=== PATIENT | female | born 1945 | race Caucasian/White ===

== ENCOUNTER 2016-10-30 06:07 | Inpatient (IN) | payer OTHER, BC ==
[~2016-10-30] VITALS: Ht 157.5 cm; Wt 121.9 kg
[~2016-10-30 06:07] MED LIST: ADULT LOW DOSE81 M1 PO; ASPIR 8181 M1 PO; BYSTOLIC5 MG PO; CARDURA2 M1 PO; CARDURA4 MG PO; CHOLESTYRAMINE P4 GM PO; CYANOCOBALAM1000 MCG PO; DILAUDID2 MG PO; ENBREL50 MG/1 ML SC; FAMOTIDINE20 MG PO; FENOFIBRATE160 M1 NG; FENOFIBRATE160 M1 PO; FLORASTOR250 MG PO; FOLIC ACID1 MG PO; FOLVITE1 MG PO; GABAPENTIN100 MG PO; GABAPENTIN300 MG PO; GLIPIZIDE10 MG PO; GLUCOPHAGE XR1000 MG PO; GLUCOTROL10 MG PO; HYDROMORPHONE HC4 MG PO; LANTUS 10100 UNITS/ SC; LANTUS 3 M100 UNITS1 SC; LASIX20 MG PO; LASIX40 MG PO; LEVEMIR100 UNIT/2 SC; LEXAPRO10 MG PO; LIDOCAINE700 MG TD; LO-DOSE ASPIRIN81 M1 PO; LOFIBRA,TRIGLI160 MG PO; LOPID600 MG PO; LOSARTAN POTASS50 MG PO; LOW DOSE ASPIRI81 M1 PO; MEDROL DOSEPAK4 MG PO; METHOTREXATE2.5 MG PO; METRONIDAZOLE500 MG PO; NEURONTIN300 MG PO; NIFEDIAC CC60 MG PO; NIFEDICAL XL30 MG PO; NITROFURANTOIN100 MG PO; NOVOLOG PE100 UNITS/ SC; OMEPRAZOLE40 M1 PO; ONDANSETRON HCL4 MG PO; PHENERGAN25 MG PR; PROAIR HFA8.5 GM IH; PROCRIT2000 UNIT/ IV; RANITIDINE HCL300 MG PO; REVATIO20 MG PO; SILDENAFIL20 MG PO; SYNTHROID75 MCG PO; TOUJEO SOL300 UNIT/1 SC; TREXALL5 MG PO; TRIGLIDE160 MG PO; TYLENOL EXTRA500 MG PO; ULORIC40 MG PO; VALIUM5 MG PO; VANCOCIN 250 M250 MG PO; VANCOMYCIN HCL250 MG PO; VIAGRA100 MG PO; VICTOZA 2-0.6 MG/0.1 SC; VICTOZA0.6 MG/0.1 SC; VITAMIN D35000 UNIT PO; VITAMIN D5000 INTUN PO; VITAMIN D5000 UNIT PO; VITAMIN E400 UNIT PO; ZOFRAN ODT4 MG PO; ZYRTEC10 M3 PO; [UNRECOGNIZED DRUG - OTHER]; [UNRECOGNIZED DRUG - OTHER] PO; [UNRECOGNIZED DRUG - REMARK] PO
[2016-10-30 06:46] LABS: HEMATOCRIT 34.5 % (36.0-46.0); MCH 30.4 PG (29.0-34.0); MCHC 31.9 G/DL (30.0-36.0); MCV 95.3 FL (83-99); PLATELET COUNT 244 K/uL (156-360); RBC DIS.WIDTH-CV 13.3 % (11.8-14.6); RBC DIS.WIDTH-SD 46.4 % (39-53); RED BLOOD COUNT 3.62 M/uL (3.80-5.20); WHITE BLOOD COUNT 8.7 K/uL (4.1-10.2)
[2016-10-30 06:54] LABS: CHLORIDE 103 mEq/L (99-109); POTASSIUM 4.4 mEq/L (3.7-5.4); SODIUM 141 mEq/L (136-147)
[2016-10-30 06:55] LABS: GLUCOSE 240 mg/dL (70-99)
[2016-10-30 06:57] LABS: ANION GAP 13 MEQ/L (2-14)
[2016-10-30 06:59] LABS: GFR ESTIMATE (CALCULATED) 32 mL/min/
[2016-10-30 07:00] LABS: UREA NITROGEN (BUN) 57 mg/dL (9-23)
[2016-10-30 09:25] LABS: POINT-OF-CARE METER ID UU14100415
[2016-10-30] MEDS ORDERED: CYANOCOBALAM1000 MCG PO (11:00)
[2016-10-30] MEDS ORDERED: LIDODERM 5% P1 PATCH TD (11:02)
[2016-10-30] MEDS ORDERED: GLIPIZIDE10 MG PO (11:05)
[2016-10-30] MEDS ORDERED: TOUJEO SOL300 UNIT/1 SC (11:06)
[2016-10-30] MEDS ORDERED: TYLENOL EXTRA500 MG PO (11:06)
[2016-10-30] MEDS ORDERED: REFRESH TEARS15 ML BOTH EYES (11:06)
[2016-10-30 16:19] LABS: POINT-OF-CARE METER ID UU14100415
[2016-10-30 16:52] VITALS: BP 142/42
[2016-10-30 17:01] VITALS: BP 142/42
[2016-10-30 23:48] VITALS: BP 155/65
[2016-10-31 05:58] LABS: HEMATOCRIT 32.3 % (36.0-46.0); MCH 30.4 PG (29.0-34.0); MCHC 31.6 G/DL (30.0-36.0); MCV 96.1 FL (83-99); MEAN PLAT.VOLUME 11.9 uM^3 (9.5-12.4); PLATELET COUNT 237 K/uL (156-360); RBC DIS.WIDTH-CV 13.3 % (11.8-14.6); RBC DIS.WIDTH-SD 46.5 % (39-53); RED BLOOD COUNT 3.36 M/uL (3.80-5.20); WHITE BLOOD COUNT 10.3 K/uL (4.1-10.2)
[2016-10-31 06:35] LABS: ANION GAP 9 MEQ/L (2-14); CHLORIDE 102 MEQ/L (99-109); GFR ESTIMATE (CALCULATED) 28 mL/min/; GLUCOSE 196 mg/dL (70-99); POTASSIUM 4.3 MEQ/L (3.7-5.4); SAMPLE HEMOLYSIS CHECK 0; SAMPLE ICTERIC CHECK 0; SAMPLE LIPEMIA CHECK 0; SODIUM 140 MEQ/L (136-147); UREA NITROGEN (BUN) 58 mg/dL (9-23)
[2016-10-31 07:24] VITALS: BP 143/62
[2016-10-31 11:44] LABS: POINT-OF-CARE METER ID UU14188577
[2016-10-31 14:58] VITALS: BP 131/67
[2016-10-31 19:38] VITALS: BP 149/63
[2016-10-31 22:50] LABS: POINT-OF-CARE METER ID UU14188577
[2016-10-31 23:31] VITALS: BP 137/62
[2016-11-01 07:38] VITALS: BP 152/66
[2016-11-01 12:03] LABS: CREATINE KINASE 92 IU/L (1-294); TOTAL CK 92 IU/L (1-294)
[2016-11-01 12:39] LABS: CK-MB 1.8 ng/mL (0.0-4.9)
[2016-11-01 13:48] LABS: HEMATOCRIT 33.1 % (36.0-46.0); MCH 30.5 PG (29.0-34.0); MCHC 31.1 G/DL (30.0-36.0); MCV 97.9 FL (83-99); MEAN PLAT.VOLUME 11.7 uM^3 (9.5-12.4); PLATELET COUNT 232 K/uL (156-360); RBC DIS.WIDTH-CV 13.5 % (11.8-14.6); RBC DIS.WIDTH-SD 47.8 % (39-53); RED BLOOD COUNT 3.38 M/uL (3.80-5.20); WHITE BLOOD COUNT 9.4 K/uL (4.1-10.2)
[2016-11-01 14:03] LABS: ANION GAP 14 MEQ/L (2-14); CHLORIDE 103 MEQ/L (99-109); GFR ESTIMATE (CALCULATED) 26 mL/min/; GLUCOSE 254 mg/dL (70-99); POTASSIUM 4.8 MEQ/L (3.7-5.4); SAMPLE HEMOLYSIS CHECK 0; SAMPLE ICTERIC CHECK 0; SAMPLE LIPEMIA CHECK 0; SODIUM 139 MEQ/L (136-147); UREA NITROGEN (BUN) 76 mg/dL (9-23)
[2016-11-01 15:39] VITALS: BP 138/64
[2016-11-01 16:57] LABS: POINT-OF-CARE METER ID UU14188577
[2016-11-01 21:55] LABS: POINT-OF-CARE METER ID UU14188577
[2016-11-01 23:56] VITALS: BP 149/69
[2016-11-02 06:11] LABS: POINT-OF-CARE METER ID UU14188577
[2016-11-02 07:39] VITALS: BP 144/73
[2016-11-02 07:47] VITALS: BP 180/79
[2016-11-02 09:27] LABS: HEMATOCRIT 32.9 % (36.0-46.0); MCH 30.3 PG (29.0-34.0); MCV 97.6 FL (83-99); MEAN PLAT.VOLUME 11.7 uM^3 (9.5-12.4); PLATELET COUNT 237 K/uL (156-360); RBC DIS.WIDTH-CV 13.3 % (11.8-14.6); RED BLOOD COUNT 3.37 M/uL (3.80-5.20); WHITE BLOOD COUNT 7.2 K/uL (4.1-10.2)
[2016-11-02 09:50] LABS: ANION GAP 10 MEQ/L (2-14); CHLORIDE 101 MEQ/L (99-109); GFR ESTIMATE (CALCULATED) 30 mL/min/; GLUCOSE 236 mg/dL (70-99); POTASSIUM 4.2 MEQ/L (3.7-5.4); SAMPLE HEMOLYSIS CHECK 0; SAMPLE ICTERIC CHECK 0; SAMPLE LIPEMIA CHECK 0; SODIUM 135 MEQ/L (136-147); UREA NITROGEN (BUN) 69 mg/dL (9-23)
[2016-11-02 12:24] LABS: POINT-OF-CARE METER ID UU14188577
[2016-11-02 15:42] VITALS: BP 143/65
[2016-11-02 16:23] LABS: POINT-OF-CARE METER ID UU14149397
[2016-11-02 23:28] VITALS: BP 158/65
[2016-11-03 06:03] LABS: HEMATOCRIT 31.4 % (36.0-46.0); MCH 30.2 PG (29.0-34.0); MCHC 31.5 G/DL (30.0-36.0); MCV 95.7 FL (83-99); MEAN PLAT.VOLUME 12.2 uM^3 (9.5-12.4); PLATELET COUNT 214 K/uL (156-360); RBC DIS.WIDTH-CV 13.2 % (11.8-14.6); RBC DIS.WIDTH-SD 45.9 % (39-53); RED BLOOD COUNT 3.28 M/uL (3.80-5.20); WHITE BLOOD COUNT 7.2 K/uL (4.1-10.2)
[2016-11-03 06:26] LABS: ANION GAP 7 MEQ/L (2-14); CHLORIDE 107 MEQ/L (99-109); GFR ESTIMATE (CALCULATED) 32 mL/min/; GLUCOSE 203 mg/dL (70-99); POTASSIUM 4.5 MEQ/L (3.7-5.4); SAMPLE HEMOLYSIS CHECK 0; SAMPLE ICTERIC CHECK 0; SAMPLE LIPEMIA CHECK 0; SODIUM 140 MEQ/L (136-147); UREA NITROGEN (BUN) 66 mg/dL (9-23)
[2016-11-03 07:30] VITALS: BP 144/52
[2016-11-03 10:54] VITALS: BP 146/56
[2016-11-03 11:35] LABS: POINT-OF-CARE METER ID UU14188577
[2016-11-03] MEDS ORDERED: FENOFIBRATE40 MG PO (14:00)
[2016-11-03] MEDS ORDERED: LYRICA75 MG PO (14:00)
[2016-11-03 15:27] VITALS: BP 165/74
== END 2016-11-03 15:49 | DRG 552 ==
LOC: EME → EDBD 06:07 → EME 06:07 → EDOF 08:33 → 3EAST 13:16 → EDOF 13:16 → 3EAST 16:21
PROVIDERS: Emergency Medicine; Hospitalist; Internal Medicine; Physician Assistant; Physician Assistant Medical; Student in an Organized Health Care Education/Training Program
DX: M54.41 Lumbago with sciatica, right side (principal); N17.9 Acute kidney failure, unspecified; I12.9 Hypertensive chronic kidney disease with stage 1 through stage 4 chronic kidney disease, or unspecified chronic kidney disease; G47.33 Obstructive sleep apnea (adult) (pediatric); E03.9 Hypothyroidism, unspecified; N18.3 Chronic kidney disease, stage 3 (moderate); I27.2 Other secondary pulmonary hypertension; K80.20 Calculus of gallbladder without cholecystitis without obstruction; F32.9 Major depressive disorder, single episode, unspecified; F41.9 Anxiety disorder, unspecified; Z88.8 Allergy status to other drugs, medicaments and biological substances; R26.2 Difficulty in walking, not elsewhere classified; E11.22 Type 2 diabetes mellitus with diabetic chronic kidney disease; Z79.4 Long term (current) use of insulin; Z74.01 Bed confinement status
CPT/HCPCS: 71010; 72192; 73501; 80048; 81003; 82550; 82553; 82948; 85027; 85651; 86140; 87086; 93005; 94660; 94799; 99281; 99285; J1100; J1170; J1644; J1815; J1885; J3010; J7030; J7050; J7120